=== PATIENT | male | born 1965 | race African-American/Black ===

== ENCOUNTER 2025-10-14 18:05 | Emergency (ER) | payer MEDICARE, SELFPAY ==
--- OUTSIDE RECORDS SUMMARY | 2025-10-10 08:15 | XMS_ITS ---
Author Organization [facility] vices Address [address] [place], [place] [id number] Care Team Providers Care Log Cutter Name Role Phone Vladimir Mosquera Primary Care Provider Allergies No Known Allergies Results Component Value Reference Range Flag Notes BASIC METABOLIC PANEL WITH G FR (Not yet reviewed by provider) Interpretation: Performing Lab: Notes/Report: GLUCOSE 93 70-100 mg/dL SRP265-41 mg/dLCREATININE, BLOOD1.480.67-1.30 mg/dLHeGFR (2020 CKD-EPI)53>59 mL/min/1.73m2L The NKF-ASN recommends use of cystatin C to confirm eGFR in adults at risk for CKD. Cystatin C can be used alone or paired with repeat creatinine measurement to increase the accuracy of estimated GFR. CALCIUM9.88.6-10.5 mg/rHXOSART145586-978 mmol/LPOTASSIUM4.73.5-5.4 mmol/L NBGCIKML47702-976 mmol/LNS28870-79 mmol/LANION OWD83-81 mmol/LPRO BNP NT (Not yet reviewed by provider) Interpretation: Performing Lab: Notes/Report:PRO BNP VS9202<300 pg/mLH 21-49 Years <300 pg/mL Normal, heart failure unlikely >=450 pg/mL High probability of heart failure 50-75 Years <300 pg/mL Normal, heart failure unlikely >=900 pg/mL High probability of heart failure >75 Years <300 pg/mL Normal, heart failure unlikely >=1800 pg/mL High probability of heart failure Methodology: Electrochemiluminescence Immunoassay (ECLIA) UNLESS OTHERWISE INDICATED, ALL TESTING PERFORMED AT: [employer] [address] [place] [address] EXTRACTION OPERATOR: ANGELA CALVIN M.D. CLIA NUMBER [id number] CAP ACCREDITATION AUID [id number] CBC W/AUTO DIFF (Not yet reviewed by provider) Interpretation: Performing Lab: Notes/Report:WBC7.13.6-11.0 THDS/CMMRBC5.314.40-6.10 MILL/GKNWCB73.513.0-18.0 G/DLHCT49.239-52 %LUT5072-488 fLMCH31.126.0-32.0 rtLQIS31.531.0-36.0 g/dlRDW13.6 11.2-14.8 %EMHLYOLO320197-683 K/uL Effective 07/24/2025; Units of Measure update to K/uL. Reference ranges remains the same. BAVMGJDQIPL86.845-75 %BVZCBBTGIXE69.820-45 %MONOCYTES9.00-13 %EOSINOPHILS2.70-5 %BASOPHILS1.00-2 %IMMATURE GRAN0.70-2 %ABS NEUTROPHILS4.621.9-8.0 K/uLABS LYMPHOCYTES1.550.9-5.2 K/uLABS MONOCYTES0.640.1-1.0 K/uLABS EOSINOPHILS0.190.0- 0.80 K/uLABS BASOPHILS0.070.0-0.2 K/uLABS IMMATURE GRAN0.050.00-0.06 K/uL REASON FOR VISIT hosp f/u 10/05 [facility] Fluid on Lung Medications Medication SIG (Take, Route, Frequency, Duration) Notes Start Date End Date Status Ansley Low Dose 81 MG Tablet Delayed Release Oral ; Duration: 84 Days ActiveMetoprolol Succinate ER 50 MG Tablet Extended Release 24 HourOral; Duration: 90 DaysActiveAtorvastatin Calcium 40 MG TabletOral; Duration: 90 Days ActiveNitroglycerin 0.4 MG Tablet Sublingual1 tablet under the tongue and allow to dissolve as needed. Take every 5 minutes up to 3 times if chest pain persists Sublingual Three times a dayAs NeededActive Social History Tobacco Use: Social History Observation Description Date Details (start date - stop date) Former Smoker NA - NA Social History Social DeterminantsSocial InfoQuestionAnswerNotesPRAPAREWhat is your current housing situation?I have housingAre you worried about losing your housing?NoWhat is the highest level of school that you have finished?High school diploma or GED What is your current work situation?Otherwise unemployed but not seeking work (ex. 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 Check all that applyI do not have problems meeting my needsHas lack of transportation kept you from medical appointments, meetings, work or from getting things needed for daily living?NoHow often do you see or talk to people that you care about and feel close to? (For example: talkingto friends on the phone, visiting friends or family, going to congregation or club meetings)More than 5 times a weekHow stressed are you? Stress is when someone feels tense, nervous, anxious, or can't sleep at nightbecause their mind is troubledA little bitIn the past year have you spent more than 2 nights in a row in a group home, chcf, group home center, orjuvenile correctional facility?NoAre you a refugee?NoWhat country are you from?[place]Do you feel physically and emotionally safe where you currently live?YesIn the past year, have you been afraid of your partner or ex-partner?NoPRAPARE Score:4Sexual History:Social Info QuestionAnswerNotesFamily PlanningAre you or your partner planning on becoming in the next year if not already ?NoPCMH and UDS Demographics Social InfoQuestionAnswerNotesPrimary Care Medical Home QuestionsDo you have any barriers to learning?NoneWhat is your preferred method of learning?ReadingHow often do you need to have someone help you read instructions?Never Drugs/Alcohol/Caffeine:Social InfoQuestionAnswerNotesCAGE-AID Questionnaire (2018 Edition)Have you ever felt that you ought to cut down on your drinking or drug use?NoHave people annoyed you by criticizing your drinking or drug use?No Have you ever felt bad or guilty about your drinking or drug use?NoHave you ever had a drink or used drugs first thing in the morning to steady your nerves or to get rid of a hangover?NoCAGE-AID Vdvam6JtditjiqhagealIrkjpsmrYzzepoe Use:Social InfoQuestionAnswerNotesTobacco Control (Standard)Tobacco use:Former smoker Problems Problem Type SNOMED Code ICD Code Onset Dates Problem Status W/U Status Risk Notes Problem Coronary artery disease (7714409 8) CAD (coronary artery disease) (I25.10) ActiveconfirmedProblemPulmonary edema (48567724)Pulmonary edema (J81.1)Active confirmed Vital Signs Temperature 98.6 degrees Fahrenheit 10/10/20 25 Blood pressure systolic 158 mm Hg 10/10/20 25 Blood pressure diastolic 99 mm Hg 025 Heart Rate 70 /min 10/10/2025 Respiratory Rate 20 /min 10/10/2025 Height 70.00 in 10/10/2025 Weight 205.4 lbs 10/10/2025 BMI 29.47 kg/m2 10/10/2025 Oximetry 99 % 10/10/2025 Height-cm 177.8 cm 10/10/2025 Weight-kg 93.17 kg 10/10/2025 Bel Barnard 10/10/2025 01:30:33 PM EST > Encounters Encounter Location Date Provider Diagnosis [facility] [address] [facility] [place] [id number] 10/10/2025 Vladimir Hiltonjulian Pulmonary edema J81. 1 ; CAD (coronary artery disease) I25.10 and Essential (primary) hypertension I10 Assessments Encounter Date Diagnosis (ICD Code) Assessment Notes Treatment Notes Treatment Clinical Notes Section Notes 10/10/2025 Pulmonary edema (ICD-10 - J81.1) 10/10/2025AD (coronary artery disease) (ICD-10 - I25.10)10/10/2025Essential (primary) hypertension (ICD-10 - I10) Plan Of Treatment Pending Test Test Name Order Date BASIC METABOLIC PANEL WITH GFR CBC W/AUTO DIFF 10/10/2025 PRO BNP NT 10/10/2025 Next Appt Details Follow Up: 1 Week, Reason: H F Provider Name:Vladimir Lidajulian, 10/17/2025 01:45:00 PM, [address], [place], [id number], History and Physical Notes * HPI (History of Present Illness) CategorySub-CategoryDetailNotesCategory NotesDepression screeningPHQ-9Little interest or pleasure in doing things: Not at allFeeling down, depressed, or hopeless: Not at allTrouble falling or staying asleep, or sleeping too much: Not at allFeeling tired or having little energy: Not at allPoor appetite or overeating: Not at allFeeling bad about yourself or that you are a failure, or have let yourself or your family down: Notat allTrouble concentrating on things, such as reading the newspaper or watching television: Not at allMoving or speaking so slowly that other people could have noticed; or the opposite, being so fidgety or restless that you have been moving around a lot more than usual: Not at allThoughts that you would be better off or of hurting yourself in some way: Not at allTotal Score: 0Interim History States Atorvastatin makes him feel like there's a pull in his chest so he stopped taking it Hospital also said he had Rhinovirus They were giving him lasix in the hospital but didn't send him home with any. pt has a follow up with Dr eng in October states that this has been Progress Notes * HELLENReji SrDOB:[birth year] (60 yo M)Acc No.[id number]:10/10/2025 Medical Note Patient: Reji Pride :?Vladimir StuddDOB:1965???Age:60 Y???Sex:Male Date:10/10/2025Phone:[phone]:[address] [facility]Qyhvr In: 01:16 PM EST Subjective: * Chief Complaints: * h osp f/u 10/05 [facility] Fluid on Lung * HPI: ???Interim History:?States Atorvastatin makes him feel like there's a pull in his chest so he stopped taking it Hospital also said he had Rhinovirus They were giving him lasix in the hospital but didn't send him home with any. pt has a follow up with Dr eng in October? states that this has been. ???Depression screening:?PHQ-9?Little interest or pleasure in doing things Not at all ?Feeling down, depressed, or hopeless?Not at all ?Trouble falling or staying asleep, or sleeping too much?Not at all ?Feeling tired or having little energy?Not at all ?Poor appetite or overeating?Not at all ?Feeling bad about yourself or that you are a failure, or have let yourself or your family down?Not at all ?Trouble concentrating on things, such as reading the newspaper or watching television?Not at all ?Moving or speaking so slowly that other people could have noticed; or the opposite, being so fidgety or restless that you have been moving arounda lot more than usual?Not at all ?Thoughts that you would be better off orof hurting yourself in some way?Not at all ?Total Score?0 * Medical History: Gout, COMMENTS: Left ankle, ProblemStatus: Active, , HTN (hypertension), ProblemStatus: Active, , Plantar fasciitis, bilateral, ProblemStatus: Active, , CAD (coronary artery disease) Pulmonary edema Medical History Verified? * Surgical History: Appendectomy, ProblemStatus: Active, ? Tonsillectomy and adenoidectomy, ProblemStatus: Active, ? SURGICAL: Tonsillectomy and adenoidectomy, ProblemStatus: Active, 2010-01-22? SURGICAL: Appendectomy, ProblemStatus: Active, 2010-01-22? Surgical History verified.? * Hospitalization/Major Diagno stic Procedure: Denies Past Hospitalization.? Hospitalization Verified.? * Family History: M igrated Family History: Brother(s), COMMENTS: none, ProblemStatus: Active, ,Father, AttributeTitle: , ProblemStatus: Active, ,Father, AttributeTitle: Unknown, ProblemStatus: Active, ,FATHER: The father is , ProblemStatus: Inactive, ,GENERAL FAMILY ILLNESS: POSITIVE HISTORY OF CEREBROVASCULAR ACCIDENT, ProblemStatus: Inactive, ,GENERAL FAMILY ILLNESS: POSITIVE HISTORY OF INSULIN DEPENDENT DIABETES, ProblemStatus: Inactive, ,Grandparents (maternal), AttributeTitle: , ProblemStatus: Active, ,Grandparents (maternal), AttributeTitle: Unknown, ProblemStatus: Active, ,Grandparents (paternal), AttributeTitle: , ProblemStatus: Active, ,Grandparents (paternal), AttributeTitle: Unknown, ProblemStatus: Active, ,Mother, AttributeTitle: Stable, COMMENTS: Elizabeth syndrome, ProblemStatus: Active, ,MOTHER: The mother is , ProblemStatus: Inactive, ,Sister(s), COMMENTS: none, ProblemStatus: Active . F amily History Verified.. * Social History: ???[facility] and S Demographics:?Primary Care Medical Home Questions?Do you have any barriers to learning??None ?What is your preferred method of learning? Reading ?How often do you need to have someone help you read instructions??Never ???Tobacco Use:?Tobacco Control (Standard)?Tobacco use:?Former smoker ???Sexual History:?Family Planning?Are you or your partner planning on becoming in the next year if not already ??No ???Drugs/Alcohol/Caffeine:?CAGE-AID Questionnaire (2018 Edition)?Have you ever felt that you ought to cut downon your drinking or drug use??No ?Have people annoyed you by criticizing your drinking or drug use??No ?Have you ever felt bad or guilty about your drinking or drug use??No ?Have you ever had a drink or used drugs firstthing in the morning to steady your nerves or to get rid of a hangover??No ?CAGE-AID Score?0 ?Interpretation?Negative ???Social Determinants:?PRAPARE?What is your current housing situation??I have housing ?Are you worried about losing your housing? No ?What is the highest level of school that you have finished??High school diploma or GED ?What is your current work situation??Otherwise unemployed but not seeking work (ex. 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 Check all that a pply?I do not have problems meeting my needs ?Has lack of transportation kept you from medical appointments, meetings, work or from getting things needed for daily living??No ?How often do you see or talk to people that you care about and feel close to? (For example: talking to friends on the phone, visiting friends or f amily, going to congregation or club meetings)?More than 5 times a week ?How stressed are you? Stress is when someone feels tense, nervous, anxious, or can't sleep at night because their mind is troubled?A little bit ?In the past year have you spent more than 2 nights in a row in a group home, chcf, group home center, or juvenile correctional facility??No ?Are you a refugee??No ?What country are you from??[place] ?Do you feel physically and emotionally safe where you currently live?? Yes ?In the past year, have you been afraid of your partner or ex-partner?? No ?PRAPARE Score:?4 ??? * Medications: T akingNitroglycerin 0.4 MG Tablet Sublingual 1 tablet under the tongue and allow to dissolve as needed. Take every 5 minutes up to 3 times if chest pain persists Sublingual Three times a day , Notes to Pharmacist: As NeededBayer Low Dose 81 MG Tablet Delayed Release Oral Metoprolol Succinate ER 50 MG Tablet Extended Release 24 Hour Oral Atorvastatin Calcium 40 MG Tablet Oral Taking Nitroglycerin 0.4 MG Tablet Sublingual 1 tablet under the tongue and allow to dissolve as needed. Take every 5 minutes up to 3 times if chest pain persists Sublingual Three times a day , Notes to Pharmacist: As NeededTaking Ansley Low Dose 81 MG Tablet Delayed Release Oral Taking Metoprolol Succinate ER 50 MG Tablet Extended Release 24 Hour Oral Taking Atorvastatin Calcium 40 MG Tablet Oral DiscontinuedValsartan-hydroCHLOROthiazide 80-12.5 MG Tablet TAKE 1 TABLET BY MOUTH DAILY Oral Medication List reviewed and reconciled with the patientDiscontinued Valsartan-hydroCHLOROthiazide 80-12.5 MG Tablet TAKE 1 TABLET BY MOUTH DAILY Oral Medication List reviewed and reconciled with the patient * Allergies: N .K.D.A.yesAllergies Verified. Objective: * Vitals: T emp:98.6F, Wt:205.4lbs, Ht: 70.00 in, BMI:29.47Index, BP:158/99mm Hg, HR:70/min, RR:20/min, Pain scale:01-10, Oxygen sat %:99%, Wt-k.17 kg, Ht-cm: 177.8 cm, Body Surface Area: 2.14. Bel Barnard 10/10/2025 01:30:33 PM EST >. Assessment: * Assessment: 1.?Pulmonary edema - J81.1 (Primary)???2.?CAD (coronary artery disease) - I 25.10???3.?Essential (primary) hypertension - I10??? Plan: * Treatment: ?LAB: BASIC METABOLIC PANEL WITH GFR (Collection Date & Time - 10/10/2025 02:12 PM)* ?ValueReference Range?[id number] - mg/dL * B UN 20 8-23 - mg/dL * C REATININE 1.48 H 0.67-1.30 - mg/dL * e GFR NON- 53 L >59 - mL/min/1. 73m2 * C ALCIUM 9.8 8.6-10.5 - mg/dL * S ODIUM 139 135-148 - mmol/L * P OTASSIUM 4.7 3.5-5.4 - mmol/L * C HLORIDE 104 96-107 - mmol/L * C O2 26 18-32 - mmol/L * A NION GAP 9 7-16 - mmol/L ?LAB: CBC W/AUTO DIFF (Collection Date & Time - 10/10/2025 02:12 PM)* ?ValueReference Range?WBC7.13.6-11.0 - THDS/CMM * R BC 5.31 4.40-6.10 - MILL/CMM * H GB 16.5 13.0-18.0 - G/DL * H CT 49.2 39-52 - % * M CV 93 75-100 - fL * M CH 31.1 26.0-32.0 - pg * M CHC 33.5 31.0-36.0 - g/dl * R DW 13.6 11.2-14.8 - % * P LATELET 312 140-440 - K/uL * % NEUTROPHILS 64.8 45-75 - % * A BS NEUTROPHILS 4.62 1.9-8.0 - K/uL * % LYMPHOCYTES 21.8 20-45 - % * A BS LYMPHOCYTES 1.55 0.9-5.2 - K/uL * % MONOCYTES 9.0 0-13 - % * A BS MONOCYTES 0.64 0.1-1.0 - K/uL * % EOSINOPHILS 2.7 0-5 - % * A BS EOSINOPHILS 0.19 0.0-0.80 - K/uL * % BASOPHILS 1.0 0-2 - % * A BS BASOPHILS 0.07 0.0-0.2 - K/uL * I MMATURE GRAN 0.7 0-2 - % * A BS IMMATURE GRAN 0.05 0.00-0.06 - K/uL ?LAB: PRO BNP NT (Collection Date & Time - 10/10/2025 02:12 PM)* ?ValueReference Range?PRO BNP RH1848Z<300 - pg/mL * Follow Up: 1 Week (Reason: HF) Billing Information: * Visit Code: 13896 Office Visit New 30-39 minutes. * Procedure Codes: * Electronic signature of LANDON Granda on 10/14/2025 at 08:20 PM ESTSign off status: Pending * Provider: Lyndsay Mosquera Date: 12/11/2024 Generated for Printing/Faxing/eTransmitting on:?10/14/2025 08:20 PM EST
[2025-10-14 18:25] VITALS: BP 188/93; PULSE 100; TEMP 38.7; O2SAT 99; BMI 29.4
[2025-10-14 19:01] LABS: SARS-CoV-2 Ag NEGATIVE (NEGATIVE)
--- OUTSIDE RECORDS SUMMARY | 2025-10-14 20:20 | XMS_ITS | Patient Health Record ---
Author Organization [facility] Address [address] [place], [place] [address] Care Team Providers Care Staff Psychologist Name Role Phone LidajulianVladimir Primary Care Provider [phone] Allergies No Known Allergies Results Component Value Reference Range Flag Notes PRO BNP NT (Not yet reviewed by provider) Interpretation: Performing Lab: Notes/Report: PRO BNP NT 1353 <300 pg/mL H 21-49 Years <300 pg/mL Normal, heart failure unlikely >=450 pg/mL High probability of heart failure 50-75 Years <300 pg/mL Normal, heart failure unlikely >=900 pg/mL High probability of heart failure >75 Years <300 pg/mL Normal, heart failure unlikely >=1800 pg/mL High probability of heart failure Methodology: Electrochemiluminescence Immunoassay (ECLIA) UNLESS OTHERWISE INDICATED, ALL TESTING PERFORMED AT: [employer] [address] [place] [address] FILTER BED PLACER: ANGELA CALVIN M.D. CLIA NUMBER [id number] CAP ACCREDITATION AUID [id number] CBC W/AUTO DIFF (Not yet rev iewed by provider) Interpretation: Performing Lab: Notes/Report: WBC 7.1 3.6-11.0 THDS/CMM RBC5.314.40-6.10 MILL/UNYNVG10.513.0-18.0 G/DLHCT49.239-52 %DMS3547-929 fLMCH 31.126.0-32.0 edQGUK21.531.0-36.0 g/dlRDW13.611.2-14.8 %IOMZMVXV347695-488 K/uL Effective 07/24/2025; Units of Measure update to K/uL. Reference ranges remains the same. CVQXLLXMMGB43.845-75 %LJQEOVVAZWP01.820-45 %MONOCYTES9.00-13 %EOSINOPHILS2.70-5 %BASOPHILS1.00-2 %IMMATURE GRAN0.70-2 %ABS NEUTROPHILS4.621.9-8.0 K/uLABS LYMPHOCYTES1.550.9-5.2 K/uLABS MONOCYTES0.640.1-1.0 K/uLABS EOSINOPHILS0.190.0- 0.80 K/uLABS BASOPHILS0.070.0-0.2 K/uLABS IMMATURE GRAN0.050.00-0.06 K/uLBASIC METABOLIC PANEL WITH GFR (Not yet reviewed by provider) Interpretation: Performing Lab: Notes/Report:OOWMMDY8930-304 mg/nQZAL313-33 mg/dLCREATININE, BLOOD1.480.67-1.30 mg/dLHeGFR (2020 CKD-EPI)53>59 mL/min/1.73m2L The NKF-ASN recommends use of cystatin C to confirm eGFR in adults at risk for CKD. Cystatin C can be used alone or paired with repeat creatinine measurement to increase the accuracy of estimated GFR. CALCIUM9.88.6-10.5 mg/tYKNKYVK615401-810 mmol/LPOTASSIUM4.73.5-5.4 mmol/L KNYAWEJN58450-492 mmol/PYZ55833-39 mmol/LANION HBJ81-83 mmol/L Reason For Referral No Information Medications Medication SIG (Take, Route, Frequency, Duration) [...] work (ex. 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 Stress is when someone feels tense, nervous, anxious, or can't sleep at nightbecause their mind is troubledA little bitIn the past year have you spent more than 2 nights in a row in a fdc, mcc, mcc center, orjuvenile correctional facility?NoAre you a refugee?NoWhat [...] or to get rid of a hangover?NoCAGE-AID Ikuiu8IpizywtodhsjtvLcihhbqqEtbymes Use:Social InfoQuestionAnswerNotesTobacco Control (Standard)Tobacco use:Former smoker Problems Problem Type SNOMED Code ICD Code Onset Dates Problem Status W/U Status Risk Notes Problem Pulmonary edema (60166334) Pulmonary junito a (J81.1) ActiveconfirmedProblemCoronary artery disease (28996348)CAD (coronary artery disease) (I25.10)ActiveconfirmedProblemEssential hypertension (50011817) Essential (primary) hypertension (I10)Activeconfirmed Comment:BP is high as pt is out of meds. Start Lisinopril/HCTZ 10/12.5mg DASH diet discussed Regular exercise and weight loss.,Description:Essential hypertension ProblemDizziness and giddiness (375095342)Head revolving around (R42)Active confirmed Comment:stable ER records reviewed with pt.,Description:Vertigo ProblemGastroesophageal reflux disease (564269523)GERD (gastroesophageal reflux disease) (K21.9)Activeconfirmed Comment:recurrent issue w/ heartburn + hiccups at times will trial omeprazole disc'd that if not improved will consider referral for eso. scope, ProblemDepression screening positive (658411457322579)Positive depression screening (Z13.31)Activeconfirmed Comment:multiple positive items pt having significnat stress being off work, w/ health problems disc'd need to focus for short-term to improve issues to prevent longer lasting/worse problem continue to monitor at f/up visit, ProblemDepression screening (436915237)Screening for depression (Z13.31)Active confirmedDescription:Depression screeningProblemDepression screening (719471187) Depression screening (Z13.31)ActiveconfirmedProblemHypertension, essential (401.) (401)11/12/2009ctiveconfirmed Comment:BP is uncontrolled. Restart Lisinopril/HCTZ 20/25mg daily DASH diet discussed. Stop smoking, ProblemScreening colonoscopy (946973329)Encounter for screening colonoscopy (Z12.11)ActiveconfirmedProblemDyspnea (545605216)Shortness of breath on exertion (R06.02)Activeconfirmed Comment:shortness of breath has improved, still some w/ exertion still c/o sputum green color, sometimes w/ blood vitals stable today & no abnormal findings on exam has sig. prior history of smoking CXR, CT and PFTs were all WNL continue to monitor, ProblemWeight decreased (418101848)Weight loss, abnormal (783.21) (783.21)Active confirmedProblemUpper respiratory infection (62256773)URI (upper respiratory infection) (J06.9)Activeconfirmed Comment:-pt has URI -sounds like it is improving as well -likely not bacterial at this time -pt declines COVID test at this time - no recent exposure -Can take vitamin C, Claritin, Mucinex, cough drops, and honey as needed for sx relief. Increase clear fluids and rest. -f/u next week if not feeling better -will give work note for this week, ProblemAchilles tendinitis (95964939)Achilles tendinitis (M76.60)Activeconfirmed Comment:Discussed diagnosis of achilles tendonitis with the pt along with the pain, inflammation, stress cycle. Instructed pt to wear supportive shoes at all times, avoid barefeet, flip flops, sandals, slippers. Instructed on stretching, handouts dispensed. Instructed to ice nightly. May add heel lift if needed at next visit,ProblemPes planus (47915781)Pes planus (M21.40)Activeconfirmed Comment:Painful fallen arch Refer to podiatry, ProblemClosed fracture of clavicle (69855420)Closed fracture of clavicle (S42.009A)Activeconfirmed Comment:Ibuprofen PRN for pain. Encouraged heating pad to affected area for 20 minutes 3-4 times daily. F/u in 2 weeks for recehck, or sooner with any additional concerns., ProblemFollow-up status (486694812)Follow up (Z09)Activeconfirmed Comment:Podiatry outstanding referral,ProblemLocalized, primary osteoarthritis of the ankle and/or foot (267090354)Arthritis of ankle or foot, left, degenerative (M19.072)ActiveconfirmedComment:Reviewed Xrays taken at [facility] which show moderate degenerative changes at ankle joint, subtalar joint, and syndesmosis. Discussed these findings with the pt along with treatment options. Recommended NSAIDs, icing, and bracing to help control motion to see how he responds. Pt would like to hold off on oral NSAIDs. Given Rx for ASO ankle brace.,ProblemChest pain (24807610)Chest pain (R07.9)Activeconfirmed Comment:had 1 episode of chest pain at work, exertional that responded to nitro none since then reviewed nitro use multiple times w/ pt & that is not preventive use, only when having pain(forincreased CP, take again if unresovled after 5min & call EMS) disc'd that w/ recent diagnosis in hospital, at incr risk of recurrent issue dis'cd importance of managing BP, avoiding stimulant like cocaine, resting if having any symptom onset & taking nitro if needed, if unresolving get emergent attn will discuss with collaborator if appropriate to start BB going to decrease work hours to avoid overtime/overexertion, disc'd moderating activity at work, ProblemExternal hordeolum (0409151)External hordeolum (H00.019)01/22/2010ctive confirmedDescription:Hordeolum externumProblemImpacted cerumen (20987939)Cerumen impaction (H61.20)Activeconfirmed Comment:Right cerumen impaction irrigated with good result. No edema of the external No Otitis externa,Description:Impacted cerumen ProblemEssential hypertension (52204950)BP (high blood pressure) (I10)Active confirmed Comment:BP still very elevated, but has improved in 2 weeks since restarting amlodipine. Will add lisionpril-hctz Continue monitoring BP at home until next appointment. Will order labs - advised if restrictions lifted, get done prior to next appointment, if not will do when possible.,Description:Hypertension ProblemHypertension (97676439)HTN (hypertension) (I10)ActiveconfirmedProblem Exposure to COVID-19 (039738686)Exposure to COVID-19 virus (Z20.822)Active confirmedProblemGout (55603175)Gout (M10.9)Activeconfirmed Comment:recurrent issues with gout per patient not clear from discussion if he was on allopurinol previously also request prior PCP records to see previous work-up will start on steroid taper, disc'd that some risk w/ recent cardiac issues so any onset of symptoms needs to seek attention, too late from gout onset to start colchicine will likely start allopurinol w/ resolution of symptoms as well d/t recurring issue will complete FMLA paperwork as well to decrease work hours for 6weeks, ProblemArthralgia of the ankle and/or foot (001073030)Ankle pain, chronic (719.47) (719.47)Activeconfirmed Comment:H/o L ankle fracture. Also has aquired pes planus.... Will schedule with podiatry on [address] today. CHeck X-rays, ProblemPlantar fascial fibromatosis (91603706)Plantar fasciitis, bilateral (M72.2)ActiveconfirmedProblemPain in limb (84158079)Paresthesia and pain of left extremity (729.5) (729.5)Activeconfirmed Comment:reduced work week note given consider MRI of left ankle and ortho eval, will await until current test results reviewed Ibuprofen OTC 600mg q8 hours as needed for pain Pt. 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 Patient wants a note to return to work. Given the contextof pandemic - I discussed with him that I am not able to write a note until there is a COVID test. PVU, and will go to urgent care for rapid test. He will then also need to make sure they fax this tous, and we can then consider okay to return to work. If patient is positive - he will need to isolate for 10 days since the start of the symptoms on december 30. 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 History of positive Hep C antibody Unclear of current status GI referral was made in 2012, pt did not follow through Also checking liver enzymes,Description:Hepatitis C antibody test positive ProblemSevere acute respiratory syndrome coronavirus 2 not detected (finding) (2096326091327615)COVID-19 virus not detected (Z20.822)Activeconfirmed Story:tested 03/26/2020 - [facility],ProblemGeneral examination of patient (941516671)Routine general medical examination at a health care facility (V70.0) (V70.0)11/12/2009Problem resolvedconfirmedProblemIncreased frequency of urination (892659676)Urinary frequency (788.41) (788.41)11/12/2009Problem resolvedconfirmedStory:ASSESSMENT: DM Vs BPH. 1. UA 2. PSA.,ProblemDyspnea (954515001)Dyspnea and respiratory abnormalities (R06.00)11/12/2009Problem resolvedconfirmedStory:ASSESSMENT: Pulmonary Vs cardiac 1. EKG 2. CXR,Description:Dyspnea and respiratory abnormality Vital Signs Heart Rate 70 /min 10/10/2025 Taina Barnard y 10/10/2025 01:30:33 PM EST > Temperature 98.6 degrees Fahrenheit 10/10/2025 Bel Banegas 10/10/2025 01:30:33 PM EST > Respiratory Rate 20 /min 10/10/2025 Faustina Barnard ttany 10/10/2025 01:30:33 PM EST > Blood pressure diastolic 99 mm Hg 10/10/2025 Bel Merlos 10/10/2025 01:30:33 PM EST > Oximetry 99 % 10/10/2025 Taina Barnard y 10/10/2025 01:30:33 PM EST > Height-cm 177.8 cm 10/10/2025 Taina Barnard 10/10/2025 01:30:33 PM EST > Weight-kg 93.17 kg 10/10/2025 Taina Barnard 10/10/2025 01:30:33 PM EST > Height 70.00 in 10/10/2025 Taina Barnard 10/10/2025 01:30:33 PM EST > Blood pressure systolic 158 mm Hg 10/10/2025 Bel Banegas 10/10/2025 01:30:33 PM EST > Weight 205.4 lbs 10/10/2025 Taina Barnard y 10/10/2025 01:30:33 PM EST > BMI 29.47 kg/m2 10/10/2025 Taina Barnard y 10/10/2025 01:30:33 PM EST > Encounters Encounter Location Date Provider Diagnosis Main [address] [place] , [place] [id number] 10/10/2025 Vladimir Mosquera Pulmonary edema J81. 1 ; CAD (coronary artery disease) I25.10 and Essential (primary) hypertension I10 Assessments Encounter Date Diagnosis (ICD Code) Assessment Notes Treatment Notes Treatment Clinical Notes Section Notes 10/10/2025 Pulmonary edema (ICD-10 - J81.1) 10/10/2025AD (coronary artery disease) (ICD-10 - I25.10)10/10/2025Essential (primary) hypertension (ICD-10 - I10) Plan Of Treatment Pending Test Test Name Order Date COVID19 (SARS-CoV-2, NA) (86221) 020 HEPATITIS C VIRUS GENOTYPE (14602) 07/28 CBC W/AUTO DIFF WBC (65603) 08/11/2013 BASIC METABOLIC PANEL WITH GFR CBC W/AUTO DIFF 10/10/2025 PRO BNP NT 10/10/2025 Next Appt Details Provider Name:Vladimir Mosquera, 10/17/2025 01:45:00 PM, [address] [place], [place], [id number], Insurance Providers Payer Name Payer Address Payer Phone Subscriber Number Group Number Insured Name Patient Relationship to Insured Coverage Start Date Coverage End Date [facility] Dual Medic al [facility] [address] [place] [address] [id number] Guero Brookself - patient is the [id number] 2025 Medical (General) History Medical History History ICD Code Gout, COMMENTS: Left ankle, ProblemStatu s: Active, , HTN (hypertension), ProblemStatus: Active, ,Plantar fasciitis, bilateral, ProblemStatus: Active, ,CAD (coronary artery disease)I25.10Pulmonary emkttK59.1 Surgical History Surgery Date(Month/Year) Appendectomy, ProblemStatus: Active, Tonsillectomy and adenoidectomy, ProblemStatus: Active,SURGICAL: Tonsillectomy and adenoidectomy, ProblemStatus: Active,5062-48-12KJFUXZXD: Appendectomy, ProblemStatus: Active,2010-01-22
--- OUTSIDE RECORDS SUMMARY | 2025-10-14 20:21 | XMS_ITS | Clinical Summary ---
Author Organization [facility] Address [address], [address] [place] [address] Care Team Providers Care Bleacher Sulfite Pulp Name Role Phone Yari Doss Primary Care Provider Allergies No known active allergies Medications MedicationSigDispense QuantityRefillsLast FilledStart DateEnd DateStatus lisinopril-hydrochlorothiazide (PRINZIDE;ZESTORETIC) 20-25 MG per tablet Take 1 tablet by mouth daily.Active Social History Tobacco UseTypesPacks/DayYears UsedDateSmoking Tobacco: Every DayCigarettes Smokeless Tobacco: NeverAlcohol UseStandard Drinks/WeekCommentsYes0 (1 standard drink = 0.6 oz pure alcohol)occasionalSex and Gender InformationValueDate RecordedSex Assigned at BirthNot on fileLegal DvaKyzl2611/30/2012 10:17 PM EST Gender IdentityNot on fileSexual OrientationNot on file Plan of Treatment Not on file Care Teams Team MemberRelationshipSpecialtyStart DateEnd Date Yari Doss PA [address] [place] [address] PCP - GeneralPhysician Qyqlqhmcc10/16/13
--- OUTSIDE RECORDS SUMMARY | 2025-10-14 20:21 | XMS_ITS | Clinical Summary ---
Author Organization [facility] Address [address] [place] [address] Care Team Providers Care Rabbler Name Role Phone No, Pcp POLISHING MACHINE OPERATOR HELPER Primary Care Provider Unavailabl e Social History Tobacco UseTypesPacks/DayYears UsedDateSmoking Tobacco: Never AssessedSex and Gender InformationValueDate RecordedSex Assigned at BirthNot on fileLegal Sex Male01/04/2021 1:35 PM EDTGender IdentityNot on fileSexual OrientationNot on file Plan of Treatment Not on file Medical Devices Not on file Care Teams Team MemberRelationshipSpecialtyStart DateEnd Date No, Pcp, POLISHING MACHINE OPERATOR HELPER N/A Do not use PCP - GeneralFamily Medicine01/04/21
--- OUTSIDE RECORDS SUMMARY | 2025-10-14 20:21 | XMS_ITS | Clinical Summary ---
Author Organization [facility] Address [address] [place] [address] Phone Care Team Providers Care Auto Body Straightener Name Role Phone Asia Tran DO Primary Care Provider + Allergies No known active allergies Medications MedicationSigDispense QuantityRefillsLast FilledStart DateEnd DateStatus nitroglycerin (Nitrostat) 0.4 mg SL tablet Indications:Coronary artery disease of soboba artery of soboba heart with stable angina pectorisPlace 1 tablet (0.4 mg) under the tongue every 5 minutes if needed for chest pain. 90 tablet 3Active aspirin 81 mg EC tablet Indications:Coronary artery disease, unspecified vessel or lesion type, unspecified whether angina present, unspecified whether soboba or transplanted heartTake 1 tablet (81 mg) by mouth 3 (three) times a week. Thursday 36 tablet 5012/05/2025ctive valsartan-hydrochlorothiazide (Diovan-HCT) 80-12.5 mg tablet Indications:Hypertension, unspecified typeTake 1 tablet by mouth once daily. 90 tablet /ctive metoprolol succinate XL (Toprol-XL) 50 mg 24 hr tablet Indications:NSTEMI, initial episode of care (Multi),Hypertensive left ventricular hypertrophy, without heart failureTake 1 tablet (50 mg) by mouth once daily. Do not crush or chew. 90 tablet 5111/21/2025ctive atorvastatin (Lipitor) 40 mg tablet Indications:Coronary artery disease of soboba artery of soboba heart with stable angina pectoris,Mixed hyperlipidemiaTake 1 tablet (40 mg) by mouth once daily at bedtime. 90 tablet 312512/ctive atorvastatin (Lipitor) 40 mg tablet Indications:Coronary artery disease of soboba artery of soboba heart with stable angina pectoris,Mixed hyperlipidemiaTake 1 tablet (40 mg) by mouth once daily at bedtime. 90 tablet /12/2024Discontinued(Reorder) metoprolol tartrate (Lopressor) 25 mg tablet Indications:Primary hypertensionTake 1 tablet (25 mg) by mouth 2 times a day. 180 tablet /12/2024Discontinued(Therapy completed) Active Problems ProblemNoted DateDiagnosed DateBMI 28.0-28.9,adult08/02/2024Former smoker 12/01/2023AD (coronary artery disease)07/15/2023 Assessment & Plan (07/20/2023 3:30 PM EDT): Jul 2021 NSTEMI mLAD PCI/Ricki 4/15mm Diag1 80% small vessel Ramus 50% CX normal RCA 20% January 2023 MPI no ischemia Progressive worsening fatigue and shortness. Occasional 'chest on fire' exertional (carry groceries) Change in exercise capacity and functional capacity No NTG use Prior PCI symptoms: chest burning Klxhjzk4707/15/20232225Xfufnxcxfoup66/27/2023 Assessment & Plan (07/20/2023 3:30 PM EDT): Optimal in office NSTEMI, initial episode of care07/15/2023Status post insertion of drug eluting coronary artery stent07/15/2023Mixed /27/2023 Assessment & Plan (07/20/2023 3:30 PM EDT): Moderate intensity statin Due for labs Hypertensive left ventricular hypertrophy, without heart grjeiig1307/15/2023ortic root kjjwqctrru05/27/2023 Assessment & Plan (07/20/2023 3:31 PM EDT): Nov [address] of chest aortic root 4.0cm January 2023 echo normal aortic root Resolved Problems ProblemNoted DateDiagnosed DateResolved DateOverweight with body mass index (BMI) 25.0-29.909// Encounters DateTypeDepartmentCare JlkeWotrajmsqvo25/23/[address] [facility] [address] [place] [address] Katharina Barraza LPN Advice Only09/20/2025 11:20 AM ESTOffice Visit at [facility] [address] [place] [phone] Marco Messer, Coronary artery disease of soboba artery of soboba heart with stable angina pectoris; Status post insertion of drug eluting coronary artery stent; NSTEMI, initial episode of care (Multi); Hypertensive left ventricular hypertrophy, without heart failure; Mixed hyperlipidemia; Primary hypertension; Aortic root dilatation; BMI 28.0-28.9,adult; Former smoker Discharge Disposition: Home09/20/20257751Eftlne79/14/2025Refill at [facility] [place] [facility] [address] [facility] [address] [place] [address] Angelita De Santiago CMA Hypertension, unspecified typefrom Last 3 Months Family History Medical HistoryRelationNameCommentsNo Known ProblemsBrotherNo Known Problems FatherHyperlipidemiaMotherHypertensionMotherNo Known ProblemsSisterRelationName StatusCommentsBrotherFatherMotherSister Social History Tobacco UseTypesPacks/DayYears UsedDateSmoking Tobacco: WqivomRwwrzvpjvj0833703 - mokeless Tobacco: Never Tobacco Cessation:Counseling Given: Not Answered Alcohol UseStandard Drinks/WeekCommentsYes3 (1 standard drink = 0.6 oz pure alcohol)PHQ-2AnswerDate RecordedPatient Health Questionnaire-2 Cnzpb114 Sex and Gender InformationValueDate RecordedSex Assigned at BirthNot on file Legal FqhZfjy50/25/2022 12:24 PM ESTGender IdentityNot on fileSexual Orientation Not on file Last Filed Vital Signs Vital SignReadingTime TakenCommentsBlood Hagbapci503/80111/21/2024 12:34 PM EST Mummu290409/20/2025 12:01 PM ESTTemperature--Respiratory Rate--Oxygen Saturation-- Inhaled Oxygen Concentration--Lxkxff08.6 kg (202 lb)09/20/2025 12:01 PM EST Mhypqm519.8 cm (5' 10 )09/20/2025 12:01 PM ESTBody Mass Index28.9809/20/2025 12:01 PM EST Plan of Treatment DateTypeDepartmentCare Team (Latest Contact Info)Bmothvptkgp60/06/2026 10:30 AM ESTOffice Visit at [facility] [address] [address] Breann García, DOCK WORKER-CHLORINE PLANT OPERATOR [address] [facility] [address], [address] [phone] 09/20/2026 9:40 AM ESTOffice Visit at [facility] [address] [address] Marco Messer, DO [address] [facility] [address], [address] [address] Health MaintenanceDue DateLast DoneCommentsCT Otghwjgfutaa1963Colonoscopy 1963Colorectal Cancer Qitzxdnqi1963FIT-DNA (Cologuard)1963FIT 1963HIV Jtsigozsj1963Lipid Panel1963Medicare Annual Wellness Visit (AWV)1965 7087Hvlttppnzewfx1963MMR Vaccines (1 of 1 - Standard series)1964Diabetes Zjxciehze32/29/1981Hepatitis C Gseewdkaz87/29/1981 Pneumococcal Vaccine (1 of 2 - PCV)1982DTaP/Tdap/Td Vaccines (1 - Tdap) 1985PSA Prostate Cancer Djdkypogz48/29/2008Lung Cancer Hhryoijks66/29/2013 RSV High Risk: (Elderly (60+) or Population) (1 - Risk 50-74 years 1- dose series)2013Zoster Vaccines (1 of 2)2013COVID-19 Vaccine ( season)2025Influenza Vaccine (#1)2025HIB VaccinesAged OutNo longer eligible based on patient's age to complete this topicHPV VaccinesAged OutNo longer eligible based on patient's age to complete this topicHepatitis A VaccinesAged OutNo longer eligible based on patient's age to complete this topic Hepatitis B VaccinesAged OutNo longer eligible based on patient's age to complete this topicIPV VaccinesAged OutNo longer eligible based on patient's age to complete this topicMeningococcal VaccineAged OutNo longer eligible based on patient's age to complete this topicRotavirus VaccinesAged OutNo longer eligible based on patient's age to complete this topic Insurance Care Teams Team MemberRelationshipSpecialtyStart DateEnd Date Asia Tran DO [address] [place] [address] PCP - General10/19/20
--- OUTSIDE RECORDS SUMMARY | 2025-10-14 20:21 | XMS_ITS | Clinical Summary ---
Author Organization [facility] Address [address] [place] [address] Care Team Providers Care Gore Seamer Name Role Phone Unavailable Primary Care Provider Unavailabl e Social History Tobacco UseTypesPacks/DayYears UsedDateSmoking Tobacco: Never AssessedSex and Gender InformationValueDate RecordedSex Assigned at BirthNot on fileLegal Sex Male04/16/2022 11:10 PM EDTGender IdentityNot on fileSexual OrientationNot on file Plan of Treatment Not on file
--- OUTSIDE RECORDS SUMMARY | 2025-10-14 20:21 | XMS_ITS | Encounter Summary ---
Author Organization [facility] Address [address] [place] [address] Phone Care Team Providers Care Business Partner Name Role Phone Asia Tran DO Primary Care Provider + Reason for Visit * ReasonOnset DateCommentsAdvice Only10/10/2025 Encounter Details DateTypeDepartmentCare Team (Latest Contact Info)Gavdpdzfbli60/23/2025[place] [address] [place] [address] Katharina Barraza LPN Advice Only Social History Tobacco UseTypesPacks/DayYears UsedDateSmoking Tobacco: [id number] - mokeless Tobacco: NeverAlcohol UseStandard Drinks/WeekCommentsYes3 (1 standard drink = 0.6 oz pure alcohol)PHQ-2AnswerDate RecordedPatient Health Questionnaire-2 [id number] and Gender InformationValueDate RecordedSex Assigned at BirthNot on fileLegal OxlVqbs43/25/2022 12:24 PM ESTGender Identity Not on fileSexual OrientationNot on filedocumented as of this encounter Miscellaneous Notes * Telephone Encounter - Katharina Barraza LPN - 10/10/2025 3:44 PM EST Patient states he went to [place]. He had a heart cath. Was advised to call office for possible apt and to follow up. Mentioned his lab work for his kidney function was abnormal. Mentions his blood pressure has been elevated. 09/20/2025 last visit. See 10/05/2025 progress notes and discharge summary under notes regarding cath with Dr. Calle Mentions they wanted to go back in but he left the facility. 145/80's today at his pcp office. He has an apt to return to his office next week. Mentions he alsohad lab work today as well. He prefers to follow up locally with Dr. Marco Messer DO to addressmedical concerns. To Dr. Marco Messer DO documented in this encounter Plan of Treatment DateTypeDepartmentCare Team (Latest Contact Info)Fdtjauicink59/06/2026 10:30 AM ESTOffice [facility] at [facility] [address] [place] [phone] Breann García, CLERK TRAVEL RESERVATIONS-STOCK PREPARATION OPERATOR [facility], [address] [address] 09/20/2026 9:40 AM ESTOffice Visit at [facility] [place] [facility] [address] [phone] Marco Messer DO [facility], [address] [address] documented as of this encounter Visit Diagnoses Not on filedocumented in this encounter Additional Health Concerns AssessmentNoted TimeA fall risk assessment has been completed for the patient 07/20/2023 3:09 PM EDTdocumented as of this encounter Care Teams Team MemberRelationshipSpecialtyStart DateEnd Date Asia Tran DO [address] [place] [address] PCP - General10/19/20documented as of this encounter
--- OUTSIDE RECORDS SUMMARY | 2025-10-14 20:21 | XMS_ITS | Clinical Summary ---
Author Organization [facility] Address [address] [place] [address] Care Team Providers Care Chip Drier Name Role Phone Unavailable Primary Care Provider Unavailabl e Social History Tobacco UseTypesPacks/DayYears UsedDateSmoking Tobacco: Never AssessedSex and Gender InformationValueDate RecordedSex Assigned at BirthNot on fileLegal Sex Male12/31/2022 7:26 PM EDTGender IdentityNot on fileSexual OrientationNot on file Last Filed Vital Signs Vital SignReadingTime TakenCommentsBlood Shoclkvx903/8207/26/2020 12:00 PM EDT Pulse--Temperature--Respiratory Rate--Oxygen Saturation--Inhaled Oxygen Concentration--Fitfqb65.6 kg (213 lb)07/26/2020 12:00 PM QBZIwddtr905.2 cm (5' 9.75 )07/26/2020 12:00 PM EDTBody Mass Index30.7807/26/2020 12:00 PM EDT Plan of Treatment Not on file
[2025-10-14] MEDS: OSELTAMIVIR PHOSPHATE 75 MG CAPSULE PO (20:30)
--- NOTE | 2025-10-14 20:36 | ED_ITS ---
HPI HPI - General Adult General Chief complaint: Upper Respiratory Infection Stated complaint: MIGRAINE, COUGHING Time Seen by Provider: 10/14/25 20:20 History of Present Illness HPI narrative: Patient is a 60-year-old male with a PMH of cardiac stent that presents to the emergency department with complaints of diarrhea, runny nose, cough, headache, and bodyaches that started yesterday. He has had sick grandchildren positive for influenza A. He denies chest pain or shortness of breath. Related Data Previous Rx's ?Medication ?Instructions ?Recorded oseltamivir 75 mg capsule (Tamiflu) 75 mg PO BID 5 day s #10 caps 10/14/25 Allergies Allergy/AdvReac Type Severity Reaction Status Date / Time No Known Drug Allergies Allergy Verified 10/14/25 18:27 Review of Systems ROS Status of ROS 10 or more systems reviewed and unremark able except as noted in history and below PFSH PFSH Social History Little interest or pleasure in doing things: not at all Feeling down, depressed, or hopeless: not at all Exam Narrative Exam Narrative: General: No distress, age-appropriate Skin: Warm, dry, no pallor. No rash. Head: Normocephalic, atraumatic. Neck: Supple, non-tender. Eye: Pupils are equal, round and EOMI. No scleral icterus. Ears, Nose, Mouth, and Throat: No nasal mucosal hypertrophy. Oral mucosa is moist, no posterior oropharynx erythema, uvula is mid-line Cardiovascular: Regular Rate and Rhythm without murmur, gallop or rub. Respiratory: No accessory muscle use or respiratory distress. Lungs are clear to auscultation, no wheezing, rales or rhonchi Chest Wall: no tenderness Musculoskeletal: Full ROM of all extremities, no calf or popliteal tenderness GI: Abdomen is soft, non-distended, non tender to palpation. No masses appreciated. No rebound, guarding, or rigidity noted. Neurological: A&O x4. No cranial nerve dysfunction observed. No truncal ataxia. Moves all extremities. Sensation intact. Psychiatric: Cooperative and interactive. Normal mood and affect. Constitutional Vital Signs, click to edit/add: Last Vital Signs Temp 101.7 F H 10/14/25 18:25 Pulse 100 H 10/14/25 18:25 Resp 18 10/14/25 18:25 BP 188/93 H 10/14/25 18:25 Pulse Ox 99 10/14/25 18:25 O2 Del Method Room Air 10/14/25 18:25 Documenting provider has reviewed patient's vital signs: yes Course Vital Signs Vital signs: Vital Signs Temperature 101.7 F H 10/14/25 18:25 Pulse Rate 100 H 10/14/25 18:25 Respiratory Rate 18 10/14/25 18:25 Blood Pressure 188/93 H 10/14/25 18:25 Pulse Oximetry 99 10/14/25 18:25 Oxygen Delivery Method Room Air 10/14/25 18:25 Temperature 101.7 F H 10/14/25 18:25 Pulse Rate 100 H 10/14/25 18:25 Respiratory Rate 18 10/14/25 18:25 Blood Pressure 188/93 H 10/14/25 18:25 Pulse Oximetry 99 10/14/25 18:25 Oxygen Delivery Method Room Air 10/14/25 18:25 Medical Decision Making MDM Narrative Medical decision making narrative: The patient is a 60-year-old male with a history of cardiac stent, presenting with symptoms of fever (102?F), cough, headache, body aches, and diarrhea. He has been in close contact with sick grandchildren who tested positive for influenza A. Given the positive rapid influenza test, the patient is diagnosed with influenza A. The patient's clinical examination reveals a febrile but nontoxic-appearing state, with clear lungs and no signs of respiratory distress (O2 saturation 98% on room air). He is hemodynamically stable, with no signs of hypoxia or cardiac decompensation. Result discussed with patient and given his cardiac history he is higher risk for influenza complications I recommended Tamiflu. We discussed risks and benefits, including side effects. Patient would like to proceed with antiviral therapy. A dose of 75 mg oseltamivir (Tamiflu) was administered in the ED, and a 5-day course of 75 mg twice daily was prescribed for outpatient management. The patient was advised to continue symptomatic care with antipyretics, hydration, and rest. He was educated on the typical course of influenza, including the possibility of continued fever for 3-4 days, and was instructed to follow-up if his symptoms worsen or if respiratory distress or chest pain develop. Given the patient?s age and cardiac history, close monitoring for secondary bacterial infections or cardiac complications was emphasized. The patient was discharged in stable condition with no immediate concerns for c omplications at this time. Plan after discharge will be to follow-up with PCP. He was advised to remain home and avoid contact with vulnerable individuals. Differential Diagnosis Differential Diagnosis: Viral URI, influenza, COVID-19 Lab Data Lab results reviewed: Yes I reviewed the patient's lab results Labs: Lab Results 10/14/25 Range/Units 18:25 Influenza Type A Ag Positive A Influenza Type B Ag Negative SARS-CoV-2 Ag (CV2AG) Negative (NEGATIVE) Discharge Plan Discharge Chief Complaint: Upper Respiratory Infection Clinical Impression: Influenza A Patient Disposition: Home, Self-Care Time of Disposition Decision: 20:21 Condition: Good Mode of Transportation: Private Vehicle Prescriptions / Home Meds: New oseltamivir [Tamiflu] 75 mg capsule 75 mg PO BID 5 Days Qty: 10 0RF Print Language: Eritrean Instructions: Influenza (ED) Additional Instructions: Follow-Up Care * Follow-up with your primary care provider or the office of [specific healthcare facility] in 2-3 days, or sooner if your symptoms worsen. * If you don?t have a PCP or need urgent care, please visit an urgent care clinic or return to the emergency department if necessary. Medications * Tamiflu (Oseltamivir): Take 75 mg twice a day for 5 days as prescribed. * How to take: Swallow the capsule whole with or without food. * Side effects to watch for: Nausea, vomiting, or rare neuropsychiatric events (like confusion or agitation). If you experience any severe side effects, stop the medication and seek immediate medical attention. * Other medications: Take your regular heart medications (e.g., aspirin, blood thinners, or beta-blockers) as prescribed. Ensure you are continuing your prescribed cardiac medications unless directed otherwise by your healthcare provider. 3. Symptom Management * Fever and body aches: * You can take Tylenol (acetaminophen) or ibuprofen for fever, headache, or body aches. Follow the recommended dose on the label, and avoid taking any combination medications that contain acetaminophen. * Hydration: Drink plenty of fluids (water, soups, etc.) to stay hydrated. This is important as dehydration can worsen your symptoms. * Rest: Rest is important to help your body recover from the infection. 4. Respiratory Care * If you experience shortness of breath, wheezing, or chest pain, please seek immediate medical attention. * Monitor your symptoms closely, especially if you have any difficulty breathing or increased fatigue. These could be signs that your heart is being stressed by the illness. 5. Red Flags ? Seek Immediate Medical Attention if: * Chest pain or tightness * Increased shortness of breath, especially with activity or when lying flat * Severe dizziness, confusion, or fainting * Persistent high fever (above 103?F) that does not respond to medication * Inability to keep fluids down due to vomiting or diarrhea * Worsening symptoms or a change in the appearance of your cough (e.g., green or bloody mucus) 6. Preventing the Spread of Illness * Isolation: Stay at home and avoid contact with others until at least 24 hours after your fever has resolved without the use of fever-reducing medications. * Hand hygiene: Wash your hands frequently with soap and water, and cover your mouth and nose when you cough or sneeze. * Avoid sharing personal items (towels, drinking glasses, etc.) until your symptoms resolve. 7. Cardiac Considerations * You have a history of a cardiac stent, so it?s important to closely monitor your heart health during this illness. Flu infections can increase the risk of complications like heart strain or heart attacks. * If you notice any chest pain, palpitations, or severe shortness of breath, get medical attention immediately. * Continue your regular heart medications (such as beta-blockers or blood thinners) as prescribed unless directed otherwise by your healthcare provider. Referrals: Physician,Non-Staff, MD [Primary Care Provider] - 1 week Discharge Date/Time: 10/14/25 20:47
[2025-10-14 20:44] VITALS: BP 147/105; PULSE 99; TEMP 38.8; O2SAT 98
== END 2025-10-14 20:47 | disposition home or self-care (01) ==
PROVIDERS: Student in an Organized Health Care Education/Training Program; Emergency Provider Emergency Medicine
DX: J10.1 Influenza due to other identified influenza virus with other respiratory manifestations (principal); R19.7 Diarrhea, unspecified; R05.9 Cough, unspecified; R51.9 Headache, unspecified; M79.10 Myalgia, unspecified site; R50.9 Fever, unspecified
CPT/HCPCS: 87804; 87811; 99284